=== PATIENT | male | born 1945 | race Caucasian/White ===

== ENCOUNTER → 2016-09-18 | Outpatient (CLI) | payer OTHER ==
[~2016-09-18] MED LIST: ASPIRIN325 MG PO; CIPRO250 MG PO; COREG 25MG TAB25 MG PO; FLAGYL500 MG PO; HABITROL 21 MG P1 EA TD; IRON PO; KLOR-CON 1010 MEQ PO; LANSOPRAZOLE30 MG PO; LASIX20 MG PO; LISINOPRIL-HCT1 EACH PO; LISINOPRIL10 MG PO; LOVASTATIN40 MG PO; PLAVIX75 MG PO; PRAMIPEXOLE DI1.5 MG PO; PROTONIX40 MG PO; ZANTAC150 MG PO; ZOFRAN4 MG PO
== END ==
LOC: LAB 13:24
DX: C20 Malignant neoplasm of rectum (principal)
CPT/HCPCS: 36415; 82565; 84520

== ENCOUNTER → 2016-09-20 | Outpatient (CLI) | payer OTHER | LOC: CT 09:00 | DX: C20 Malignant neoplasm of rectum (principal) | CPT/HCPCS: 71260; J7050; Q9962 ==

== ENCOUNTER → 2016-10-01 | Day surgery (SDC) | payer OTHER | END | disposition home or self-care (01) | LOC: OR 06:27 | PROVIDERS: Internal Medicine Gastroenterology | PROC: 0DBN8ZX Excision of Sigmoid Colon, Via Natural or Artificial Opening Endoscopic, Diagnostic (ICD-10-PCS; 2016-10-01) | PROC: 0DBP8ZX Excision of Rectum, Via Natural or Artificial Opening Endoscopic, Diagnostic (ICD-10-PCS; principal; 2016-10-01 10:15) | DX: Z12.11 Encounter for screening for malignant neoplasm of colon (principal); K62.1 Rectal polyp; K64.4 Residual hemorrhoidal skin tags; K57.30 Diverticulosis of large intestine without perforation or abscess without bleeding; K64.1 Second degree hemorrhoids; I10 Essential (primary) hypertension; E66.9 Obesity, unspecified; M19.90 Unspecified osteoarthritis, unspecified site; Z68.36 Body mass index [BMI] 36.0-36.9, adult; Z87.11 Personal history of peptic ulcer disease; Z88.0 Allergy status to penicillin; Z88.8 Allergy status to other drugs, medicaments and biological substances; Z95.1 Presence of aortocoronary bypass graft; Z98.890 Other specified postprocedural states | CPT/HCPCS: J7030 ==